=== PATIENT | female | born 1955 | race Hispanic/Latino ===

== ENCOUNTER 2019-03-22 11:46 | Emergency (ER) | payer BC ==
[2019-03-22 12:02] VITALS: BMI 27.8
[2019-03-22 12:04] VITALS: RESP 17
[2019-03-22] MEDS ORDERED: Sodium Chloride 0.9% 1,000 ML IV STA (12:46)
--- NOTE | 2019-03-22 13:11 | ED PDOC ---
HPI: Abdomen Time Seen by Provider: 03/22/19 12:14 Chief Complaint (Nursing): Abdominal Pain Chief Complaint (Provider): Abdominal Pain History Per: Patient History/Exam Limitations: no limitations Onset/Duration Of Symptoms: Hrs Current Symptoms Are (Timing): Still Present Additional Complaint(s): Patient is a 64 y/o female with no significant PMHx who presents to the ED for evaluation of generalized abdominal pain onset last night. Patient admits to vomiting. Patient noted she took three doses of left over antibiotics from her yesterday with no relief of symptoms. Patient also complains of a headache to her forehead that is primarily left-sided. Furthermore, patient reports she was initially experiencing throat pain that has now resolved. Currently, patient denies fever and diarrhea. PCP: Dr. Willem Landon Past Medical History Reviewed: Historical Data, Nursing Documentation, Vital Signs Vital Signs: Last Vital Signs Temp 97.8 F 03/22/19 12:02 Pulse 76 03/22/19 12:02 Resp 17 03/22/19 12:02 BP 136/72 03/22/19 12:02 Pulse Ox 94 L 03/22/19 12:02 Primary Care Provider: Willem Landon - Medical History PMH: No Chronic Diseases - Surgical History Surgical History: No Surg Hx - Family History Family History: States: No Known Family Hx - Home Medications Home Medications: Ambulatory Orders Medication Instructions Recorded Famotidine [Pepcid] 20 mg PO BID #20 tab 03/22/19 Ondansetron ODT [Zofran ODT] 4 mg PO Q8H PRN #20 odt 03/22/19 - Allergies Allergies/Adverse Reactions: Allergies Allergy/AdvReac Type Severity Reaction Status Date / Time No Known Allergies Allergy Verified 03/22/19 12:44 Review of Systems ROS Statement: Except As Marked, All Systems Reviewed And Found Negative Constitutional: Negative for: Fever ENT: Negative for: Throat Pain Gastrointestinal: Positive for: Vomiting, Abdominal Pain (generalized). Negative for: Diarrhea Neurological: Positive for: Headache (frontal; primarily left-sided) Physical Exam - Reviewed Nursing Documentation Reviewed: Yes - Physical Exam Appears: Positive for: No Acute Distress Head Exam: Positive for: ATRAUMATIC, NORMAL INSPECTION, NORMOCEPHALIC Skin: Positive for: Normal Color, Warm, DRY Eye Exam: Positive for: EOMI, Normal appearance, PERRL Neck: Positive for: Normal, Painless ROM, Supple Cardiovascular/Chest: Positive for: Regular Rate, Rhythm. Negative for: Murmur Respiratory: Positive for: Normal Breath Sounds. Negative for: Respiratory Distress Gastrointestinal/Abdominal: Positive for: Tenderness (epigastric) Back: Positive for: Normal Inspection. Negative for: L CVA Tenderness, R CVA Tenderness Extremity: Positive for: Normal ROM. Negative for: Pedal Edema, Deformity Neurological/Psych: Positive for: Awake, Alert, Oriented (x3) - Laboratory Results Result Diagrams: 03/22/19 13:00 03/22/19 13:00 - ECG O2 Sat by Pulse Oximetry: 94 (RA) Pulse Ox Interpretation: Normal Medical Decision Making Medical Decision Making: Time: 1244 Impression: Generalized Abdominal Pain and Headache Plan: CT Abd & Pelvis IV Contrast Only CT Head w/o Contrast EKG CMP Lipase Urine Dipstick CBC PTT Prothrombin Time Bentyl 20 mg PO IV Fluids Zofran 4 mg IV C Diff Toxin A B UA 1445 CT Head FINDINGS: HEMORRHAGE: No intracranial hemorrhage. BRAIN: Normal solorzano-white matter differentiation and density are appreciated throughout the cerebrum and cerebellum with the brainstem appearing unremarkable as well. There is no mass effect. There is no suspicious extra-axial fluid collection and the midline brain anatomy appears diffusely unremarkable. VENTRICLES: Unremarkable. No hydrocephalus. CALVARIUM: Unremarkable. PARANASAL SINUSES: Left maxillary and ethmoid sinusitis identified. MASTOID AIR CELLS: Unremarkable as visualized. No inflammatory changes. OTHER FINDINGS: None. IMPRESSION: Unremarkable unenhanced CT of the Head. 1450 CT Abd & Pelvis FINDINGS: LOWER THORAX: Small hiatal hernia identified. LIVER: Diffuse hepatic steatosis is appreciate without underlying mass appreciable or intrahepatic biliary dilatation. Liver is normal in size overall. GALLBLADDER AND BILE DUCTS: Unremarkable. PANCREAS: Unremarkable. No gross lesion or ductal dilatation. SPLEEN: Unremarkable. ADRENALS: Unremarkable. No mass. KIDNEYS AND URETERS: Unremarkable. No hydronephrosis. No solid mass. VASCULATURE: Nonaneurysmal abdominal aortic calcific atherosclerotic changes are identified. BOWEL: Unremarkable. No obstruction. No gross mural thickening. APPENDIX: Normal appendix. PERITONEUM: Tiny umbilical hernia identified containing only fat. No free fluid. No free air. LYMPH NODES: Unremarkable. No enlarged lymph nodes. BLADDER: Unremarkable. REPRODUCTIVE: Unremarkable. BONES: No acute fracture. OTHER FINDINGS: None. IMPRESSION: No definite acute abdominal or pelvic findings as discussed above. Hepatic steatosis is identified without focal mass or intrahepatic biliary dilatation appreciable. No intrahepatic biliary dilatation. Unremarkable gallbladder. Normal appendix. No bowel obstruction. Scribe Attestation: Documented by Bobby Aponte, acting as a scribe Marcel Reis MD Provider Scribe Attestation: All medical record entries made by the Scribe were at my direction and personally dictated by me. I have reviewed the chart and agree that the record accurately reflects my personal performance of the history, physical exam, medical decision making, and the department course for this patient. I have also personally directed, reviewed, and agree with the discharge instructions and disposition. Disposition - Clinical Impression Clinical Impression: Abdominal pain in female, Gastritis, Headache - Disposition Disposition: Routine/Home Disposition Time: 15:10 Condition: STABLE Additional Instructions: FOLLOW-UP WITH PMD WITHIN 2 DAYS FOR REEVALUATION. Prescriptions: Famotidine [Pepcid] 20 mg PO BID #20 tab Ondansetron ODT [Zofran ODT] 4 mg PO Q8H PRN #20 odt PRN Reason: Nausea/Vomiting Instructions: Gastritis, Headache, Adult, Acute Abdomen (Belly Pain) Forms: sliceX (Lebanese)
[2019-03-22 13:15] LABS: BASO % 0.4 % (0.0-2.0); HEMOGLOBIN 12.7 g/dL (12.0-16.0); LYMPH # 1.3 K/uL (1.0-4.3); LYMPH % 12.5 % (20.0-40.0); MEAN CELL VOLUME 88.8 fl (81.0-99.0); MEAN CORPUSCULAR HEMOGLOBIN 30.2 pg (27.0-31.0); MEAN CORPUSCULAR HGB CONC 33.9 g/dL (33.0-37.0); MEAN PLATELET VOLUME 6.7 fl (7.2-11.7); MONO # 0.5 K/uL (0.0-0.8); MONO % 4.5 % (0.0-10.0); NEUT # 8.3 K/uL (1.8-7.0); NEUT % 82.6 % (50.0-75.0); RBC 4.22 Mil/uL (3.80-5.20); RED CELL DISTRIBUTION WIDTH 13.9 % (11.5-14.5); WHITE BLOOD COUNT 10.1 K/uL (4.8-10.8)
[2019-03-22 13:18] LABS: PROTHROMBIN TIME 11.4 Seconds (9.8-13.1)
[2019-03-22 13:21] LABS: ALB/GLOB RATIO 1.1 (1.0-2.1); ALBUMIN 4.3 g/dL (3.5-5.0); ALT/SGPT 24 U/L (9-52); AST/SGOT 29 U/L (14-36); BLOOD UREA NITROGEN 8 mg/dl (7-17); CALCIUM 9.2 mg/dL (8.4-10.2); GFR NON-AFRICAN AMERICAN > 60; LIPASE 46 U/L (23-300); PARTIAL THROMBOPLASTIN TIME 32.2 Seconds (25.6-37.1)
[2019-03-22 13:48] LABS: SQUAMOUS EPITHIAL 2 /hpf (0-5); URINE AMORPHOUS SEDIMENT MANY /ul (<OCC); URINE BILIRUBIN NEGATIVE (NEGATIVE); URINE BLOOD NEGATIVE (NEGATIVE); URINE CLARITY CLOUDY (Clear); URINE COLOR YELLOW (YELLOW); URINE GLUCOSE (UA) NEG (NEGATIVE); URINE LEUKOCYTE ESTERASE NEG Leu/uL (Negative); URINE PROTEIN 30 mg/dL (NEGATIVE); URINE UROBILINOGEN 0.2-1.0 mg/dL (0.2-1.0)
[2019-03-22] MEDS ORDERED: Iohexol 300 100 ML IJ ONE (14:01)
[2019-03-22] MEDS ORDERED: Sodium Chloride 0.9% 100 ML ONE (14:02)
--- NOTE | 2019-03-22 14:48 | CT ---
Date of service: 03/22/2019 PROCEDURE: CT HEAD WITHOUT CONTRAST. HISTORY: Vertigo COMPARISON: None available. TECHNIQUE: Axial computed tomography images were obtained through the head/brain without intravenous contrast. Radiation dose: Total exam DLP = 812.56 mGy-cm. This CT exam was performed using one or more of the following dose reduction techniques: Automated exposure control, adjustment of the mA and/or kV according to patient size, and/or use of iterative reconstruction technique. FINDINGS: HEMORRHAGE: No intracranial hemorrhage. BRAIN: Normal solorzano-white matter differentiation and density are appreciated throughout the cerebrum and cerebellum with the brainstem appearing unremarkable as well. There is no mass effect. There is no suspicious extra-axial fluid collection and the midline brain anatomy appears diffusely unremarkable. VENTRICLES: Unremarkable. No hydrocephalus. CALVARIUM: Unremarkable. PARANASAL SINUSES: Left maxillary and ethmoid sinusitis identified. MASTOID AIR CELLS: Unremarkable as visualized. No inflammatory changes. OTHER FINDINGS: None. IMPRESSION: Unremarkable unenhanced CT of the Head.
--- NOTE | 2019-03-22 14:54 | CT ---
Date of service: 03/22/2019 PROCEDURE: CT Abdomen and Pelvis with contrast HISTORY: Abd pain, v/d COMPARISON: None. TECHNIQUE: Following the intravenous administration of iodinated contrast material, a CT examination of the abdomen and pelvis was performed from the domes of the diaphragms to the symphysis pubis with reformatted datasets provided in axial, sagittal and coronal planes. Oral contrast was not administered as per referring physician request. Contrast dose: Omnipaque 300, 90 cc Radiation dose: Total exam DLP = 653.39 mGy-cm. This CT exam was performed using one or more of the following dose reduction techniques: Automated exposure control, adjustment of the mA and/or kV according to patient size, and/or use of iterative reconstruction technique. FINDINGS: LOWER THORAX: Small hiatal hernia identified. LIVER: Diffuse hepatic steatosis is appreciate without underlying mass appreciable or intrahepatic biliary dilatation. Liver is normal in size overall. GALLBLADDER AND BILE DUCTS: Unremarkable. PANCREAS: Unremarkable. No gross lesion or ductal dilatation. SPLEEN: Unremarkable. ADRENALS: Unremarkable. No mass. KIDNEYS AND URETERS: Unremarkable. No hydronephrosis. No solid mass. VASCULATURE: Nonaneurysmal abdominal aortic calcific atherosclerotic changes are identified. BOWEL: Unremarkable. No obstruction. No gross mural thickening. APPENDIX: Normal appendix. PERITONEUM: Tiny umbilical hernia identified containing only fat. No free fluid. No free air. LYMPH NODES: Unremarkable. No enlarged lymph nodes. BLADDER: Unremarkable. REPRODUCTIVE: Unremarkable. BONES: No acute fracture. OTHER FINDINGS: None. IMPRESSION: No definite acute abdominal or pelvic findings as discussed above. Hepatic steatosis is identified without focal mass or intrahepatic biliary dilatation appreciable. No intrahepatic biliary dilatation. Unremarkable gallbladder. Normal appendix. No bowel obstruction.
[2019-03-22 15:49] VITALS: BP 130/70; PULSE 72; TEMP 97.6
[2019-03-22 20:50] VITALS: O2SAT 94
--- NOTE | 2019-03-23 11:27 | CARD ---
APPROVED REPORT Date of service: 03/22/2019 EKG Measurement Heart [id number] <Conclusion> Normal sinus rhythm Normal ECG
== END 2019-03-22 15:30 | disposition home or self-care (01) ==
LOC: H.ER 11:46
DX: K29.70 Gastritis, unspecified, without bleeding (principal); R51 Headache; R10.84 Generalized abdominal pain
CPT/HCPCS: 70450; 74177; 80053; 81003; 83690; 85025; 85610; 85730; 93005; 96374; 96375; 99282; J1885; J2405; J7030; Q9967